=== PATIENT | male | born 1975 | race Caucasian/White ===

== ENCOUNTER 2016-11-30 11:29 | Day surgery (SDC) | payer MEDICARE, OTHER ==
[~2016-11-30] VITALS: Ht 167.6 cm; Wt 115.0 kg
[2016-11-30] VITALS (12 sets, daily range): BP systolic 112–138; BP diastolic 57–84; PULSE 75–98; RESP 7–20; Ht 167.6 cm; Wt 115.0 kg
[~2016-11-30 11:29] MED LIST: MECL-77; NORT10CA2
[2016-11-30 13:39] LABS: ADD SCAN DIFF NO
[2016-11-30 13:42] LABS: BASOPHIL # 0.1 10^3/ul (0.0-0.1); BASOPHILS % 0.9 % (0.0-2.0); EOSINOPHILS # 0.4 10^3/ul (0.0-0.5); EOSINOPHILS % 6.2 % (0.0-7.0); HEMATOCRIT 46.4 % (42.0-52.0); HEMOGLOBIN 15.7 g/dl (14.0-18.0); LYMPHOCYTES % 17.6 % (15.0-51.0); MEAN CORPUSCULAR HEMOGLOBIN 28.6 pg (29.0-33.0); MEAN CORPUSCULAR HGB CONC 33.8 g/dl (32.0-37.0); MEAN CORPUSCULAR VOLUME 84.7 fl (82.0-101.0); MEAN PLATELET VOLUME 11.8 fl (7.4-10.4); MONOCYTE # 0.5 10^3/ul (0.3-0.9); MONOCYTES % 8.8 % (0.0-11.0); NEUTROPHIL # 3.7 10^3/ul (1.6-7.5); PLATELET COUNT 223 10^3/UL (140-415); RED BLOOD COUNT 5.48 10^6/ul (4.70-6.10); RED CELL DISTRIBUTION WIDTH 12.8 % (11.5-14.5); WHITE BLOOD COUNT 5.7 10^3/ul (4.8-10.8)
[2016-11-30 13:45] LABS: INR 0.87; PROTIME 11.8 Sec (12.2-14.2); PT RATIO 0.9
[2016-11-30 13:46] LABS: PARTIAL THROMBOPLASTIN TIME 29.6 Sec (25.0-35.0)
[2016-11-30] MEDS ORDERED: LORA10TA3 PO (13:50)
[2016-11-30] MEDS ORDERED: TRAZ100T15 PO (13:50)
[2016-11-30] MEDS ORDERED: ZOLP10TA5 PO (13:50)
[2016-11-30] MEDS ORDERED: SERT50TA6 PO (13:50)
[2016-11-30] MEDS ORDERED: HYDR-3011 PO (13:50)
[2016-11-30] MEDS ORDERED: TRAM50TA2 PO (13:50)
[2016-11-30] MEDS ORDERED: CYCL-319 PO (13:50)
[2016-11-30] MEDS ORDERED: FLUT16SP17 NASAL (13:50)
[2016-11-30] MEDS ORDERED: IBUP-1542 PO (13:50)
[2016-11-30] MEDS ORDERED: NORT10CA2 PO (13:50)
[2016-11-30] MEDS ORDERED: DIPH25CA6 PO (13:50)
[2016-11-30 14:00] LABS: CALCIUM 9.5 mg/dl (8.4-10.2); CREATININE 1.16 mg/dl (0.61-1.24); POTASSIUM 4.4 mmol/L (3.5-5.1)
[2016-11-30] MEDS ORDERED: LIDOCAINE 1% (MDV) 20 ML INJ ONE (14:19)
[2016-11-30] MEDS ORDERED: ROPIVACAINE 0.5 % 30 ML VIAL ONE (14:19)
[2016-11-30] MEDS ORDERED: SUCCINYLCHOLINE CHLORIDE 100 MG/5 ML SYG IV ONE (14:20)
[2016-11-30] MEDS ORDERED: ROCURONIUM 50 MG INJ ONE (14:20)
[2016-11-30] MEDS ORDERED: PROPOFOL 20 ML ONE ×2 (14:20→15:04)
[2016-11-30] MEDS ORDERED: ONDANSETRON 4 MG INJ ONE (15:13)
[2016-11-30] MEDS ORDERED: DEXAMETHASONE 4 MG/ML 1 ML INJ ONE (15:13)
[2016-11-30] MEDS ORDERED: CEFAZOLIN 1 GM INJ ONE (15:13)
[2016-11-30] MEDS ORDERED: ALBUTEROL 0.083% (NEB) 2.5 MG/3 ML AMP ONE (15:14)
[2016-11-30] MEDS ORDERED: PHENYLephrine (100 MCG/ML) 5ML SYG ONE (15:17)
[2016-11-30] MEDS ORDERED: LIDOCAINE 2% JELLY 5 ML ONE (15:50)
[2016-11-30] MEDS ORDERED: GLYCOPYRROLATE 0.4 MG INJ ONE (15:57)
[2016-11-30] MEDS ORDERED: NEOSTIGMINE 3 MG/3 ML SYRINGE ONE (15:57)
--- NOTE | 2016-11-30 16:12 | OPR ---
DATE OF OPERATION: 11/30/2016 REOPERATIVE DIAGNOSIS: Incarcerated ventral/umbilical hernia. POSTOPERATIVE DIAGNOSIS: Incarcerated ventral/umbilical hernia. OPERATION PERFORMED: Ventral herniorrhaphy. ANESTHESIA: General. ANESTHESIOLOGIST: EBONIE ARNOLD DO. SURGEON: Michael Wilder MD [employer] DR[employer]: Rodney Fung MD INDICATIONS FOR PROCEDURE: The patient is a 41-year-old male who presented with an enlarging bulge and significant pain just above his umbilicus. He was examined and found to have evidence of a vent ral/umbilical hernia. He was counseled as to the risks versus benefits of repair and he consented a nd was scheduled for surgery. DESCRIPTION OF PROCEDURE: The patient was brought to the operating theater, placed under general en dotracheal tube anesthesia. The abdomen was shaved, prepped and draped in usual sterile fashion. A midline incision was made from a point approximately 2 cm above the umbilicus around the umbilicus to a 0.1 cm below it. Subcutaneous tissue was dissected with cautery. In the subcutaneous space, a large hernia sac was encountered. It was meticulously dissected down to its base with the abdomina l wall fascia. The sac was opened, found to obtain omentum. The adhesions were taken down and the omentum was returned to the abdomen. The sac was then transected and sent for permanent pathologic analysis. The wound was inspected. It was deemed suitable for primary repair. It was then repaire d with multiple 0 Prolene sutures in [id number] fashion. A final suture was used to tack the d ermis and the umbilicus to the abdominal wall fascia to recreate an inverted umbilicus. The wound w as irrigated. Minimal bleeding was controlled with cautery. Skin was reapproximated with a deep de rmal layer of 4-0 Vicryl sutures in interrupted fashion and final skin approximation took place with 5-0 PDS suture in subcuticular fashion. The patient tolerated procedure well. ESTIMATED BLOOD LOSS: 20 mL. COMPLICATIONS: There were no complications. DISPOSITION: The patient was transported in stable condition to the recovery room. Dictated By: MICHAEL WILDER MD TL/CHAKA Conf#: [id number] DID#: [id number]
[2016-11-30] MEDS: HYDROmorphONE (0.2 MG/ML) 10ML SYG IV PRN ×5 (16:35→17:25)
[2016-11-30] MEDS ORDERED: KETOROLAC 30 MG INJ ONE (16:42)
[2016-11-30] MEDS ORDERED: HYDROmorphONE (0.2 MG/ML) 10ML SYG IV ONE (16:42)
[2016-11-30] MEDS ORDERED: KETOROLAC 30 MG INJ IV ONE (17:00)
[2016-11-30] MEDS ORDERED: OXYCODONE/ACETAMINOPHEN (5/325) TAB PO PRN (17:00)
== END 2016-11-30 18:20 | disposition home or self-care (01) ==
LOC: SDS 11:29
PROVIDERS: ATTEND Surgery Surgical Oncology
DX: K43.6 Other and unspecified ventral hernia with obstruction, without gangrene (principal); E66.01 Morbid (severe) obesity due to excess calories; Z68.41 Body mass index [BMI] 40.0-44.9, adult
CPT/HCPCS: 49561; 80048; 85025; 85610; 85730; 88302; J0330; J0690; J1100; J1170; J1885; J2370; J2405; J2795; J3010; J2710